=== PATIENT | female | born 1970 | race Caucasian/White ===

== ENCOUNTER 2017-11-12 13:02 | Day surgery (SDC) | payer OTHER ==
[~2017-11-12] VITALS: Ht 167.6 cm; Wt 74.8 kg
[~2017-11-12 13:02] MED LIST: LEXAPRO10 MG PO; PHENTERMINE HCL30 MG PO; PROAIR RESPICL90 MCG IH; VITAMIN D5000 UNI1 PO; ZYRTEC10 M3 PO
[2017-11-12 13:23] VITALS: BP 126/88
[2017-11-12 20:00] VITALS: BP 119/74
[2017-11-12 20:50] VITALS: BP 114/66
== END 2017-11-12 21:15 | disposition home or self-care (01) ==
LOC: SDC 13:02
PROC: 01N50ZZ Release Median Nerve, Open Approach (ICD-10-PCS; principal; 2017-11-12)
PROC: 0RRS07Z Replacement of Right Carpometacarpal Joint with Autologous Tissue Substitute, Open Approach (ICD-10-PCS; principal; 2017-11-12)
DX: M18.11 Unilateral primary osteoarthritis of first carpometacarpal joint, right hand (principal); G56.01 Carpal tunnel syndrome, right upper limb; J45.909 Unspecified asthma, uncomplicated; Z88.0 Allergy status to penicillin
CPT/HCPCS: J0131; J0690; J1170; J2250; J3010; S0020